=== PATIENT | female | born 1935 | race Caucasian/White ===

== ENCOUNTER → 2019-05-14 10:04 | Outpatient (CLI) | payer MEDICARE, OTHER, SELFPAY ==
--- NOTE | 2019-05-14 10:07 | DI.RAD.S_ITS ---
PROCEDURE: XR LUMBAR SPINE MIN 4V INDICATIONS: Lumbosacral spondylosis with hip pain TECHNIQUE: 5 views of the lumbar spine acquired. COMPARISON: None. FINDINGS: Bones: Grade 1 anterolisthesis of L4 on L5. Straightening of the normal lordotic curvature. No fracture or focal osseous destruction. Multilevel degenerative endplate sclerosis and spurring. Diffuse facet arthropathy. Diffuse mild/moderate lumbar disc space narrowing. Severe bilateral hip joint degeneration. No pars defects identified. Soft tissues: Scattered vascular calcifications seen in the aorta. IMPRESSION: Diffuse mild/moderate lumbar spondylosis and facet arthropathy. Grade 1 anterolisthesis of L4 and L5. Dictated by: Yehuda Marroquin M.D. on 05/14/2019 at 13:07 Approved by: Yehuda Marroquin M.D. on 05/14/2019 at 13:10
--- NOTE | 2019-05-14 10:07 | DI.RAD.S_ITS ---
PROCEDURE: XR KNEE RT 3V INDICATIONS: Lumbosacral spondylosis with hip pain TECHNIQUE: 3 views of the knee were acquired. COMPARISON: None. FINDINGS: Bones: No fractures or dislocations. No suspicious bony lesions. Chondrocalcinosis projects in the medial and lateral compartments. Scattered degenerative subchondral sclerosis and spurring. The joint spaces appear grossly preserved. Soft tissues: No joint effusion. No suspicious soft tissue calcifications. IMPRESSION: Right knee mild degeneration and chondrocalcinosis. Dictated by: Yehuda Marroquin M.D. on 05/14/2019 at 13:10 Approved by: Yehuda Marroquin M.D. on 05/14/2019 at 13:11
== END ==
PROVIDERS: PCP Internal Medicine; Visit Provider Physical Medicine & Rehabilitation
DX: M47.817 Spondylosis without myelopathy or radiculopathy, lumbosacral region (principal); M47.816 Spondylosis without myelopathy or radiculopathy, lumbar region; M17.11 Unilateral primary osteoarthritis, right knee; M43.16 Spondylolisthesis, lumbar region; M11.261 Other chondrocalcinosis, right knee; M25.559 Pain in unspecified hip
CPT/HCPCS: 72110; 73562; 99215

== ENCOUNTER → 2019-05-27 13:39 | Outpatient (CLI) | payer MEDICARE, OTHER, SELFPAY ==
--- NOTE | 2019-05-27 13:48 | DI.CT.S_ITS ---
PROCEDURE: CT LUMBAR SPINE WO CON INDICATIONS: Lower back pain TECHNIQUE: Noncontrast 3 mm thick sections acquired from the T12 level to the sacrum. Sagittal and coronal reformats were constructed. For radiation dose reduction, the following was used: automated exposure control. COMPARISON: None. FINDINGS: Image quality: Excellent. Bones: There is grade 1 anterolisthesis of L4 and L5. No acute vertebral body compression fractures. No suspicious lytic or blastic bony lesions. Degenerative endplate changes and vacuum disc phenomenon is seen at L5-S1 level. Degenerative endplate changes also seen at L3-4 and L4-5 levels. Central spinal caliber is of normal overall caliber. No pars defects. T12-L1: Unremarkable L1-L2: Unremarkable L2-L3: The broad-based disc bulge and bilateral facet arthrosis is seen with mild central canal stenosis, no significant neural foramina narrowing. L3-L4: Broad-based disc bulge and bilateral facet arthrosis is noted with hypertrophy of ligamentum flavum. There is moderate central canal stenosis and right worse than left bilateral neuroforaminal narrowing. L4-L5: Broad-based disc bulge and bilateral facet arthrosis is seen with severe central canal stenosis and bilateral neural foramina narrowing. L5-S1: Loss of intervertebral disc space. Broad-based disc bulge is seen with bilateral facet arthrosis causing moderate to severe central canal stenosis and severe bilateral neuroforaminal narrowing. Soft tissues: No retroperitoneal masses or hematomas. Visualized aorta is normal in caliber. IMPRESSION: 1. Grade 1 anterolisthesis of L4 on L5. No gross pars defect. No acute compression fracture. 2. Degenerative disc bulge and bilateral facet arthrosis at L2-3 through L5-S1 levels causing moderate to severe central canal stenosis and bilateral neuroforaminal narrowing more prominent at L4-5 and L5-S1 levels as above. Dictated by: Mehul Carrington M.D. on 05/27/2019 at 17:24 Approved by: Mehul Carrington M.D. on 05/27/2019 at 17:29
== END ==
PROVIDERS: PCP Internal Medicine; Visit Provider Internal Medicine
DX: M54.5 Low back pain (principal); M85.88 Other specified disorders of bone density and structure, other site; Z78.0 Asymptomatic menopausal state; E07.9 Disorder of thyroid, unspecified; M43.16 Spondylolisthesis, lumbar region; M47.816 Spondylosis without myelopathy or radiculopathy, lumbar region; M47.817 Spondylosis without myelopathy or radiculopathy, lumbosacral region; M51.36 Other intervertebral disc degeneration, lumbar region; M51.37 Other intervertebral disc degeneration, lumbosacral region; M48.061 Spinal stenosis, lumbar region without neurogenic claudication; M48.07 Spinal stenosis, lumbosacral region; M45.9 Ankylosing spondylitis of unspecified sites in spine; Z82.62 Family history of osteoporosis; Z87.891 Personal history of nicotine dependence
CPT/HCPCS: 72131; 77080

== ENCOUNTER → 2019-08-11 14:05 | Outpatient (CLI) | payer MEDICARE, SELFPAY ==
--- NOTE | 2019-08-11 | DI.US.S_ITS ---
PROCEDURE: US RENAL COMPLETE INDICATIONS: CHRONIC KIDNEY DISEASE, STAGE 3 (MODERATE) TECHNIQUE: Real-time scanning was performed of the kidneys and bladder, with image documentation. COMPARISON: None. FINDINGS: Kidneys: Kidneys are normal in size. Right kidney measures 9.2 cm long; left kidney measures 9.6 cm long. Right renal cortical thickness is 1.1 cm; left renal cortical thickness is 1.1 cm. Renal cortical echotexture is normal. No hydronephrosis or nephrolithiasis. No suspicious solid mass lesions. Superior pole right renal cyst measuring 15 mm Bladder: Pre-void bladder volume is 17 mL. Post-void residual is unable to be assessed. Pre-void images demonstrate no intraluminal masses or stones. On pre-void images, neither ureteral jets are noted with color Doppler interrogation. (Of note, ureteral jets may not be detectable in up to 25% of cases due to insufficient differences in specific gravity between ureteral and bladder urine). Miscellaneous: No free pelvic fluid. IMPRESSION: Right renal cyst; otherwise normal kidneys. Dictated by: Freedom Melton [facility] Interpreted: Vidhya Iglesias MD on 08/11/2019 at 14:58 Approved by: Vidhya Iglesias MD, PhD on 08/11/2019 at 17:42
== END ==
PROVIDERS: Family Provider Internal Medicine; PCP Internal Medicine; Visit Provider Student in an Organized Health Care Education/Training Program
DX: N18.3 Chronic kidney disease, stage 3 (moderate) (principal); N28.1 Cyst of kidney, acquired
CPT/HCPCS: 76770

== ENCOUNTER → 2020-03-29 14:39 | Outpatient (ROUT) | payer MEDICARE, SELFPAY ==
[2020-03-29 14:52] LABS: INR 1.8 (0.9-1.3); Prothrombin Time 20.9 SECONDS (10.1-12.7)
== END ==
PROVIDERS: Family Provider Internal Medicine; PCP Internal Medicine; Visit Provider Student in an Organized Health Care Education/Training Program
DX: I48.91 Unspecified atrial fibrillation (principal)
CPT/HCPCS: 85610

== ENCOUNTER → 2020-07-15 14:14 | Outpatient (CLI) | payer MEDICARE, SELFPAY | PROVIDERS: Family Provider Internal Medicine; PCP Internal Medicine; Referring Provider Internal Medicine; Visit Provider Internal Medicine | DX: M85.88 Other specified disorders of bone density and structure, other site (principal); Z78.0 Asymptomatic menopausal state; E07.9 Disorder of thyroid, unspecified; M06.9 Rheumatoid arthritis, unspecified; M45.9 Ankylosing spondylitis of unspecified sites in spine; Z82.62 Family history of osteoporosis; Z87.891 Personal history of nicotine dependence | CPT/HCPCS: 77080 ==

== ENCOUNTER 2021-03-28 00:12 | Emergency (ER) | payer MEDICARE, SELFPAY ==
[2021-03-28] VITALS (11 sets, daily range): BP systolic 113–158; BP diastolic 62–90; PULSE 72–128; RESP 15–24; TEMP 36.9; O2SAT 95–99; BMI 27.9
--- NOTE | 2021-03-28 00:51 | DI.CT.S_ITS ---
PROCEDURE: CT HEAD/BRAIN WO CON INDICATIONS: fall with head injury on coumadin TECHNIQUE: Noncontrast 4.5 mm thick angled axial sections acquired from the foramen magnum to the vertex, with coronal and sagittal reformats. For radiation dose reduction, the following was used: automated exposure control, adjustment of mA and/or kV according to patient size. COMPARISON: None. FINDINGS: Image quality: Excellent. CSF spaces: Basal cisterns are patent. No extra-axial fluid collections. The ventricles are symmetric in size and shape. Brain: No intracranial bleeds or masses. There is cerebral volume loss for age, with resultant ventricular and sulcal prominence. There are periventricular and deep white matter chronic small vessel ischemic changes. There is intracranial internal carotid artery atherosclerosis. Skull and face: Calvarium and visualized facial bones appear intact, without suspicious lesions. Sinuses: Visualized sinuses and mastoids are clear. IMPRESSION: No acute intracranial disease process. Dictated by: Vidhya Iglesias MD, PhD on 03/28/2021 at 7:20 Approved by: Vidhya Iglesias MD, PhD on 03/28/2021 at 7:22
--- NOTE | 2021-03-28 00:51 | DI.CT.S_ITS ---
PROCEDURE: CT CERVICAL SPINE WO CON INDICATIONS: fall with head injury on coumadin TECHNIQUE: Noncontrast 3 mm thick sections acquired from the skull base to the T4 level. Sagittal and coronal reformats were then constructed. For radiation dose reduction, the following was used: automated exposure control, adjustment of mA and/or kV according to patient size. COMPARISON: None. FINDINGS: Image quality: Excellent. Bones: No fractures or dislocations. Visualized superior ribs are intact. Spine degenerative disc disease and facet arthropathy. Soft tissues: Prevertebral soft tissues are normal in thickness. No paravertebral hematomas. No apical pneumothoraces. Left chest wall cardiac pacer. IMPRESSION: No fracture. No acute osseous lesion. If symptoms and/or clinical suspicion for pathology persists, evaluation with MRI should be considered for further assessment. Dictated by: Vidhya Iglesias MD, PhD on 03/28/2021 at 8:22 Approved by: Vidhya Iglesias MD, PhD on 03/28/2021 at 8:38
--- NOTE | 2021-03-28 00:52 | DI.RAD.S_ITS ---
PROCEDURE: XR ANKLE RT MIN 3V INDICATIONS: pain and edema TECHNIQUE: 3 views of the ankle were acquired. COMPARISON: None. FINDINGS: Bones: No acute fractures or dislocations. Small, 1 x 3 millimeter ossification noted adjacent to the medial malleolus which may represent remote avulsion injury versus accessory ossicle. Ankle mortise is normally aligned. No suspicious bony lesions. Plantar calcaneal bone spur. Tibiotalar joint osteoarthritis Soft tissues: No tibiotalar joint effusion. Achilles tendon appears normal. Lateral soft tissue swelling is noted and ligamentous injury cannot be excluded. IMPRESSION: No acute fracture. No acute osseous lesion. If symptoms and/or clinical suspicion for pathology persists, further assessment with repeat radiographs (7-10 days) or advanced imaging (e.g. CT, MRI or bone scan) should be considered. Dictated by: Vidhya Iglesias MD, PhD on 03/28/2021 at 9:15 Approved by: Vidhya Iglesias MD, PhD on 03/28/2021 at 9:17
[2021-03-28 01:29] LABS: Add Manual Diff / Slide Review NO; Basophils Absolute Auto 100 /uL (0-100); Basophils Percent Auto 0.9 % (0-2); Eosinophils Absolute Auto 100 /uL (0-450); Eosinophils Percent Auto 0.8 % (2-4); Hematocrit 39.5 % (36-46); Hemoglobin 12.6 g/dL (12.0-16.0); Lymphocytes Absolute Auto 2500 /uL (1100-4500); Lymphocytes Percent Auto 21.2 % (25-40); Mean Corpuscular HGB Conc 31.9 % (30-36); Mean Corpuscular Hemoglobin 30.1 PG (26-34); Mean Corpuscular Volume 94.5 fL (80-100); Monocytes Absolute Auto 1200 /uL (0-900); Monocytes Percent Auto 10.4 % (3-14); Neutrophils Absolute Auto 7800 /uL (1500-7000); Neutrophils Percent Auto 66.7 % (50-75); Platelet Count 245 X10^3/uL (150-400); Red Blood Cell Count 4.18 X10^6/uL (4.0-5.2); Red Cell Distribution Width 14.5 % (11.6-14.8); White Blood Cell Count 11.7 X10^3/uL (4.5-11.0)
[2021-03-28 01:33] LABS: Alanine Aminotransferase 27 IU/L (<35); Albumin 3.8 g/dL (3.5-5.0); Albumin Globulin Ratio 1.2 (1.0-2.8); Alkaline Phosphatase 71 U/L (38-126); Aspartate Aminotransferase 35 IU/L (14-36); BUN Creatinine Ratio 25.4 (6-22); Bilirubin Total 0.6 mg/dL (0.2-1.3); Blood Urea Nitrogen 30 mg/dL (7-17); Calcium 9.3 mg/dL (8.4-10.2); Carbon Dioxide 29 mmol/L (22-32); Chloride 104 mmol/L (98-107); Estimated Glomerular Filt Rate 43.6 mL/min (>60); Globulin 3.1 g/dL (1.7-4.1); Glucose 99 mg/dL (80-110); HEMOLYSIS < 15 (0-50); Sodium 140 mmol/L (137-145); Total Protein 6.9 g/dL (6.3-8.2)
[2021-03-28 01:38] LABS: INR 4.1 (0.9-1.3); Prothrombin Time 48.4 SECONDS (10.1-12.7)
[2021-03-28 01:40] LABS: PTT Partial Thromboplastin Tim 42 SECONDS (26.4-36.2)
--- NOTE | 2021-03-28 01:55 | ED_ITS ---
HPI - Fall General Chief Complaint: Fall Stated Complaint: Right ankle pain, had fall Time Seen by Provider: 03/28/21 01:55 Source: family Mode of arrival: Wheelchair Limitations: no limitations History of Present Illness HPI Narrative: This is an 85-year-old female comes emergency department complaint of a ground level fall earlier this evening. Patient has a bruise on the left forehead and bruising and pain of the right lateral malleoli. Patient has chronic memory issues and does not recall the fall. states that he is unsure exactly what time it happened but it happened this evening. Patient is complaining of pain in her ankle but really no other pain at this time. She denies any headache, no neck pain, no chest pain or shortness of breath. She has not had any nausea or vomiting. She denies any numbness or tingling or other GI or urinary symptoms. She is on warfarin for atrial fibrillation. Related Data Home Medications Medication Instructions Recorded Confirmed ACETAMINOPHEN PO Q6HP PRN #0 06/15/17 [VIACTIV] 1 tab PO TIDCC #0 06/15/17 estradiol [Estrace] 1 gm VAGINAL 3 X A WEEK #0 06/15/17 warfarin [Jantoven] PO QDAY #0 06/15/17 acetaminophen 325 mg capsule 325 - 650 mg PO Q6H PRN cap 05/14/19 05/14/19 atenolol 25 mg tablet 12.5 mg PO DAILY tab 05/14/19 05/14/19 donepezil 10 mg tablet 10 mg PO BID tab 05/14/19 05/14/19 flecainide 100 mg tablet 100 mg PO Q12H 05/14/19 05/14/19 levothyroxine 75 mcg capsule 75 mcg PO DAILY cap 05/14/19 05/14/19 lovastatin 40 mg tablet 40 mg PO DAILY 05/14/19 05/14/19 Previous Rx's Medication Instructions Recorded sennosides-docusate sodium [DOK 1 tab PO BIDP PRN #10 tab 06/15/17 Plus] celecoxib 200 mg capsule 200 mg PO DAILY #30 cap 05/14/19 diclofenac sodium 1 % topical gel 2 gram TOP QID #100 gram 07/15/19 lidocaine 5 % topical patch 1 patch TOP DAILY #15 each 07/15/19 hydrocodone-acetaminophen 1 tab PO Q6H PRN #10 tab 03/28/21 Allergies Allergy/AdvReac Type Severity Reaction Status Date / Time morphine Allergy Severe CONVULSIONS Verified 03/28/21 00:44 /SEIZURES bacitracin Allergy Intermediate RASH AND Verified 03/28/21 00:44 ITCHING neomycin Allergy Intermediate RASH AND Verified 03/28/21 00:44 [From Neosporin ITCHING ([id number])] polymyxin B Allergy Intermediate RASH AND Verified 03/28/21 00:44 [From Neosporin ITCHING ([id number])] adhesive Allergy Mild RASH AND Verified 03/28/21 00:44 ITCHING bacitracin Allergy Uncoded 03/28/21 00:44 latex gloves Allergy Uncoded 03/28/21 00:44 Review of Systems Review of Systems ROS Unobtainable: All systems reviewed & are unremarkable except as noted in HPI and below ( gives ROS in addition ) Patient History Social History Smoking Status: Never smoker Smoking Status: Never smoker alcohol intake frequency: holidays/special occasions only Substance Use Type: does not use Exam Narrative Exam Narrative: GEN: Patient appears in mild distress. HEAD: Patient has some ecchymosis of full left brow, no raccoon/Worthy sign. NECK: Nontender, painless range of motion, trachea midline Negative Nexus criteria, there is no mid line tenderness, distracting injury, no new altered mental status patient does have baseline dementia, neuro deficit, recent EtOH. Per patient's she is at her normal state. EYES: PERRLA, EOMI ENT: External inspection normal, trachea is midline, TM's are normal no hemotypanum, Nares are clear, no septal hematoma, no dental or oral injury, airway is normal and with normal occlusion, No bony tenderness RESP: Chest is nontender and has symmetric movement, no ecchymosis, breath sounds are normal no crackles, wheezes or rales CVS: Heart sounds are normal, no murmur noted, No JVD. ABG/GI: Nontender, soft, normal bowel sounds, no distention, no organomegaly, pelvic rock is negative NEURO: Oriented AOx3, neuro is grossly intact, sensation and motor is normal all 4 extremities moving, cranial nerves II through XII are intact, GCS is 14 PSYCH: Normal mood and affect SKIN: Intact, warm and dry, no crepitus and without decubitus BACK: No CVA tenderness, no vertebral tenderness, no step-off's, no crepitus EXT: Right lateral malleoli has swelling and tenderness with some mild bruising. No other bony tenderness on examination. Hips are nontender, no pedal edema, normal color and temperature, normal range of motion of extremities with normal tendon exam, 2+ pulses in all four extremities Initial Vital Signs Initial Vital Signs: Vital Signs Pulse Rate 111 H 03/28/21 00:38 Respiratory Rate 17 03/28/21 00:38 Blood Pressure 158/67 H 03/28/21 00:38 Pulse Oximetry 99 03/28/21 00:38 Scores GCS Marlin coma scale eye opening: Spontaneous Eliazar coma scale verbal response: Confused Eliazar coma scale motor response: Obey commands Eliazar coma scale total score: 14 Course Orders Ordered: ED Orders 03/28/21 00:44 EKG-12 Lead Stat 03/28/21 00:51 CT cervical spine wo con Stat CT head/brain wo con Stat 03/28/21 00:52 XR ankle RT min 3V Stat 03/28/21 01:10 Complete Blood Count AUTO DIFF Stat Comprehensive Metabolic Panel Stat Partial Thromboplastin Time Stat Prothrombin Time INR Stat Discontinued Medications Acetaminophen (Acetaminophen 325 Mg Tablet) 975 mg PO NOW ONE Stop: 03/28/21 04:29 Last Admin: 03/28/21 04:42 Dose: 975 mg Documented by: OJSE Vital Signs Vital signs: Vital Signs - 8 hr 03/28/21 00:38 03/28/21 00:44 03/28/21 01:00 Temperature 98.4 F Pulse Rate 111 H 72 102 H Respiratory Rate 17 16 24 Blood Pressure 158/67 H 158/67 H 130/62 Pulse Oximetry 99 98 03/28/21 01:30 03/28/21 02:00 03/28/21 02:30 Temperature Pulse Rate 120 H 117 H 115 H Respiratory Rate 24 17 19 Blood Pressure 128/74 113/69 121/87 Pulse Oximetry 98 98 95 03/28/21 03:00 03/28/21 03:30 03/28/21 03:31 Temperature Pulse Rate 106 H 109 H 128 H Respiratory Rate 17 15 17 Blood Pressure 128/83 145/90 H Pulse Oximetry 98 97 99 03/28/21 04:00 03/28/21 04:30 Temperature Pulse Rate 114 H 106 H Respiratory Rate 17 18 Blood Pressure 124/67 124/80 Pulse Oximetry 98 98 MDM - Fall Lab Data Attestation: I reviewed the patient's lab results. Result diagrams: 03/28/21 01:10 03/28/21 01:10 Labs: Lab Results 03/28/21 03/28/21 03/28/21 Range/Units 01:10 01:10 01:10 WBC 11.7 H (4.5-11.0) X10^3/uL RBC 4.18 (4.0-5.2) X10^6/uL Hgb 12.6 (12.0-16.0) g/dL Hct 39.5 (36-46) % MCV 94.5 (80-100) fL MCH 30.1 (26-34) PG MCHC 31.9 (30-36) % RDW 14.5 (11.6-14.8) % Plt Count 245 (150-400) X10^3/uL Neut % (Auto) 66.7 (50-75) % Lymph % (Auto) 21.2 L (25-40) % [place] % (Auto) 10.4 (3-14) % Eos % (Auto) 0.8 L (2-4) % Baso % (Auto) 0.9 (0-2) % Neut # (Auto) 7800 H (9176-3624) /uL Lymph # (Auto) 2500 (0484-6671) /uL [place] # (Auto) 1200 H (0-900) /uL Eos # (Auto) 100 (0-450) /uL Baso # (Auto) 100 (0-100) /uL PT 48.4 H (10.1-12.7) SECONDS INR 4.1 H (0.9-1.3) APTT 42 H (26.4-36.2) SECONDS Sodium 140 (137-145) mmol/L Potassium 4.0 (3.4-5.1) mmol/L Chloride 104 (98-107) mmol/L Carbon Dioxide 29 (22-32) mmol/L BUN 30 H (7-17) mg/dL Creatinine 1.18 H (0.52-1.04) mg/dL Estimated GFR 43.6 L (>60) mL/min BUN/Creatinine Ratio 25.4 H (6-22) Glucose 99 (80-110) mg/dL Calcium 9.3 (8.4-10.2) mg/dL Total Bilirubin 0.6 (0.2-1.3) mg/dL AST 35 (14-36) IU/L ALT 27 (<35) IU/L Alkaline Phosphatase 71 (38-126) U/L Total Protein 6.9 (6.3-8.2) g/dL Albumin 3.8 (3.5-5.0) g/dL Globulin 3.1 (1.7-4.1) g/dL Albumin/Globulin Ratio 1.2 (1.0-2.8) Imaging Data CT scan - head: Radiologist's Impression: Lacunar infarct right sub insular cortex, age indeterminate. Vent periventricular and deep point matter hypodensity likely secondary to chronic microangiopathic disease. No acute hemorrhage or large tentorial infarct. CT - cervical spine: Radiologist's Impression: No acute fracture dislocation. Spondylolysis. Mild central canal stenosis C4/C5/C6/C7 multilevel degenerative disc disease and facet hypertrophy. Decreased joint space with sclerosis, osteophytosis and ligamentous calcification C1/C2. No acute fracture dislocation. Normal vertebral alignment. Extremity x-ray #1: Radiologist's Impression: Tiny osseous fragment adjacent to the tip the medial malleoli member present a minimally displaced avulsion fracture. Osteoarthritis. MDM Narrative Medical decision making narrative: Is an 85-year-old female who is anticoagulated on warfarin secondary to atrial fibrillation with a ground level fall with bruising of the left forehead and right ankle pain and bruising. Patient's ankle x-ray shows a an avulsion fracture. Her head CT is negative the C-spine was included as she has baseline dementia and although is a symptomatic does not have a GCS of 15. Patient's labs do show a bump in her creatinine from prior but according her her GFR is 44 she is following up Nephrology this week. Her warfarin is 4, helps with her medications are going to hold for 2 days and have it rechecked on Sunday. Patient's will call to set up follow-up for this. 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 Patient was given referral for Orthopedic surgery. She has a walker at home, walking boot, plan for Tylenol as needed with [place] for breakthrough pain as needed. Discharge Plan Departure Patient Disposition: Home Clinical Impression: Elevated INR, Creatinine elevation, Avulsion fracture of ankle Instructions: DI for Ankle Fracture Activity Restrictions/Additional Instructions: Your imaging shows a very small fragment adjacent the medial malleolus likely representing as small avulsion fracture. Follow-up with orthopedic surgery for recheck in the next week. Call for an appointment tomorrow morning. Referral is included below. Weight bear as tolerated. Continue to wear splint until cleared by Orthopedic surgery. You may take Tylenol up to a 1000 mg every 8 hours as needed for pain. If this is inadequate take [place] 1 tablet every 6 hours as needed instead. Your maximum amount of Tylenol in 24 hours is 3000 mg. Prescription to [facility] [address] in [facility]. Your INR today is elevated at 4.1, please hold your warfarin/Coumadin for the next 2 days and have your level rechecked on Sunday. Your creatinine is elevated compared to your prior in 2017, may be your current baseline but today it is 1.18 with a GFR of 43 Please return for fevers, lightheadedness or passing out, severe headaches, new neck or back pain, chest pain or shortness of breath, persistent vomiting, new numbness tingling weakness or other new or concerning symptoms. Splint Care: Keep splint clean and dry. Elevated affected body part to decrease swelling. OK to use ice pack on the affected body part. Use for 15-20 minutes each time, for 5-6x per day. If you develop worsening pain, numbness, tingling, discoloration of the affected body part, loosen the splint by loosening the RASHMI wrap, and either see your doctor for an urgent re-assessment, or return to the Emergency Department. Return to the Emergency Department for any new or worsening symptoms. Prescriptions: New hydrocodone-acetaminophen 5-325 mg tablet 1 tab PO Q6H PRN (Reason: pain) Qty: 10 RF: 0 No Action ACETAMINOPHEN PO Q6HP PRNQty: 0 RF: 0 estradiol [Estrace] 0.01 % cream 1 gm Vaginal 3 X A WEEK Qty: 0 RF: 0 warfarin [Jantoven] 5 MG tablet PO QDAY Qty: 0 RF: 0 [VIACTIV] 1 tab PO TIDCC Qty: 0 RF: 0 sennosides-docusate sodium [DOK Plus] 8.6 MG/50 MG tablet 1 tab PO BIDP PRNQty: 10 RF: 0 lidocaine 5 % adhesive patch,medicated 1 patch TOP DAILY Qty: 15 RF: 1 diclofenac sodium 1 % gel 2 gram TOP QID Qty: 100 RF: 0 atenolol 25 mg tablet 12.5 mg PO DAILY RF: 0 donepezil 10 mg tablet 10 mg PO BID RF: 0 flecainide 100 mg tablet 100 mg PO Q12H RF: 0 levothyroxine 75 mcg capsule 75 mcg PO DAILY RF: 0 lovastatin 40 mg tablet 40 mg PO DAILY RF: 0 acetaminophen [Tylenol] 325 mg capsule 325 - 650 mg PO Q6H PRNRF: 0 celecoxib [Celebrex] 200 mg capsule 200 mg PO DAILY Qty: 30 RF: 2 Referrals: Aleida Jolly MD [Physician] - Vicky Hendrix MD [Primary Care Provider] -
[2021-03-28] MEDS: ACETAMINOPHEN 325 MG TABLET 975 MG PO (04:42)
--- NOTE | 2021-04-06 01:27 | PC.NURSE ---
Late entry: Ortho boot applied prior to discharge; documented in worklist.
== END 2021-03-28 04:57 | disposition home or self-care (01) ==
PROVIDERS: Emergency Provider Emergency Medicine; Family Provider Internal Medicine; PCP Internal Medicine
DX: R79.1 Abnormal coagulation profile (principal); R79.89 Other specified abnormal findings of blood chemistry; S82.891A Other fracture of right lower leg, initial encounter for closed fracture; W19.XXXA Unspecified fall, initial encounter; Z79.01 Long term (current) use of anticoagulants
CPT/HCPCS: 36415; 70450; 72125; 73610; 80053; 85025; 85610; 85730; 93005; 93010; 99284; 99285